=== PATIENT | male | born 1940 ===

== ENCOUNTER 2018-11-06 06:07 | Day surgery (SDC) | payer MEDICARE ==
[2018-10-21 10:53] VITALS: BMI 21.9
[2018-11-06] MEDS ORDERED: Lidocaine 2% Jelly (Uro-Jet) ONE (07:30)
[2018-11-06] MEDS ORDERED: Ciprofloxacin 400mg/200ml D5W 400 MG/200 ML BAG IVPB ONE (07:30)
[2018-11-06] MEDS ORDERED: Propofol 10 mg/ml Inj (20 ML) ONE (07:34)
[2018-11-06] MEDS ORDERED: Midazolam 2 MG/2 ML VIAL ONE (07:34)
[2018-11-06] MEDS ORDERED: Gentamicin 80 mg in 0.9% NS 80 MG/100 ML BAG IVPB ONE (07:41)
[2018-11-06] MEDS ORDERED: HYDROmorphone 0.5 mg/0.5 ml ISec IVP PRN (09:25)
[2018-11-06 11:51] VITALS: RESP 18; TEMP 97.5
[2018-11-06 12:15] VITALS: BP 127/58; PULSE 62; O2SAT 96
--- NOTE | 2018-11-06 20:24 | OP ---
PROCEDURE DATE: 11/06/2018 PREOPERATIVE DIAGNOSIS: Prostate hypertrophy. POSTOPERATIVE DIAGNOSIS: Prostate hypertrophy. PROCEDURE PERFORMED: GreenLight laser of the prostate. SURGEON: Radha Shin MD DESCRIPTION OF PROCEDURE: The patient was placed on the operating room table in a dorsal lithotomy position. After he was given general anesthesia, the area of the groin was draped and prepped in a sterile manner. Under direct vision, I entered into the bladder with a laser scope. I identified the adenoma that needed to be resected. It was trilobar in nature. Bladder wall was heavily trabeculated. Preoperative measurement of the prostate was an excess of 100 g. At this time, I began to laser the prostate and started at 80 with a maximum of 180 reese of treatment pressure. Once the adenoma was significantly reduced in size, there was complete opening from the verumontanum to the bladder. I used approximately 435,000 joules of energy to achieve this. At the end of the procedure, the verumontanum was circumferentially intact. Estimated blood loss was to be less than 50 mL. The patient had no intraoperative complications, but at one point very soon onset of the procedure, I had changed the laser fiber because it was not functioning properly. Other than that, everything went smoothly. A #22 three-way Jacobs catheter was inserted. The initial outflow was practically clear. He was taken from the operating room in good condition. Radha Shni MD
== END 2018-11-06 12:30 | disposition home or self-care (01) ==
LOC: C.SDS 06:07
PROVIDERS: ATTEND Urology
DX: D29.1 Benign neoplasm of prostate (principal)
CPT/HCPCS: 52648; J0744; J1580; J7030